=== PATIENT | male | born 1940 | race Caucasian/White ===

== ENCOUNTER → 2018-06-12 09:33 | Outpatient (CLI) | payer MEDICARE, BC, SELFPAY ==
[2018-06-12 10:33] LABS: Add Manual Diff / Slide Review NO; Basophils Percent Auto 0.9 % (0-2); Eosinophils Percent Auto 4.8 % (2-4); Hematocrit 45.4 % (41-53); Hemoglobin 15.5 g/dL (13.5-17.5); Lymphocytes Percent Auto 17.5 % (25-40); Mean Corpuscular HGB Conc 34.1 % (30-36); Mean Corpuscular Hemoglobin 30.8 PG (26-34); Mean Corpuscular Volume 90.1 fL (80-100); Monocytes Percent Auto 9.4 % (3-14); Neutrophils Absolute Auto 3900 /uL (3000-5900); Neutrophils Percent Auto 67.4 % (50-75); Platelet Count 199 X10^3/uL (150-400); Red Blood Cell Count 5.04 X10^6/uL (4.5-5.9); Red Cell Distribution Width 13.6 % (11.6-14.8); White Blood Cell Count 5.8 X10^3/uL (4.5-11.0)
[2018-06-12 11:06] LABS: Alanine Aminotransferase 31 IU/L (21-72); Albumin 4.2 g/dL (3.5-5.0); Albumin Globulin Ratio 1.8 (1.0-2.8); Alkaline Phosphatase 67 U/L (38-126); Aspartate Aminotransferase 25 IU/L (17-59); BUN Creatinine Ratio 20.8 (6-22); Blood Urea Nitrogen 27 mg/dL (9-20); Calcium 9.1 mg/dL (8.4-10.2); Carbon Dioxide 29 mmol/L (22-32); Chloride 105 mmol/L (98-107); Cholesterol 239 mg/dL (140-199); Estimated Glomerular Filt Rate 53.7 mL/min (>60); Globulin 2.4 g/dL (1.7-4.1); Glucose 95 mg/dL (80-110); HDL Cholesterol 36 mg/dL (40-60); HEMOLYSIS < 15 (0-50); LDL Cholesterol Calculated 180 mg/dL (<100); Potassium 4.7 mmol/L (3.4-5.1); Sodium 143 mmol/L (137-145); Total Protein 6.6 g/dL (6.3-8.2); Triglycerides 113 mg/dL (35-150)
[2018-06-12 11:24] LABS: Thyroid Stimulating Hormone 1.96 uIU/mL (0.47-4.68)
[2018-06-12 11:29] LABS: Prostate Specific Antigen Scrn < 0.064 ng/mL (0.1-4.0)
== END ==
PROVIDERS: Family Provider Family Medicine; PCP Family Medicine; Visit Provider Family Medicine
DX: I10 Essential (primary) hypertension (principal); E78.5 Hyperlipidemia, unspecified; Z12.5 Encounter for screening for malignant neoplasm of prostate
CPT/HCPCS: 36415; 80053; 80061; 84443; 85025; G0103

== ENCOUNTER → 2018-08-25 08:46 | Outpatient (CLI) | payer MEDICARE, BC, SELFPAY ==
--- NOTE | 2018-08-25 08:50 | DI.US.S_ITS ---
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 COMPARISON: None. FINDINGS: Stenosis calculations are based on SRU (Society of Radiologists in Ultras[employer]) criteria. The flow velocities and the arterial waveforms are normal within both carotid arterial systems. Atherosclerotic plaque is seen on both sides. The estimated degree of internal carotid artery stenosis is less than 50%. Antegrade flow is confirmed within both vertebral arteries. IMPRESSION: No hemodynamically significant stenosis is seen. Atherosclerotic plaque is noted bilaterally. Dictated by: Min Falk M.D. on 08/25/2018 at 9:12 Approved by: Min Falk M.D. on 08/25/2018 at 9:12
== END ==
PROVIDERS: Family Provider Family Medicine; PCP Family Medicine; Visit Provider Family Medicine
DX: I65.23 Occlusion and stenosis of bilateral carotid arteries (principal); I25.10 Atherosclerotic heart disease of native coronary artery without angina pectoris
CPT/HCPCS: 93880

== ENCOUNTER → 2018-09-24 12:55 | Outpatient (CLI) | payer MEDICARE, BC, SELFPAY ==
[2018-09-24 13:56] LABS: Blood Urea Nitrogen 22 mg/dL (9-20); Calcium 9.5 mg/dL (8.4-10.2); Carbon Dioxide 28 mmol/L (22-32); Chloride 103 mmol/L (98-107); Estimated Glomerular Filt Rate > 60.0 mL/min (>60); Glucose 82 mg/dL (80-110); HEMOLYSIS < 15 (0-50); Potassium 4.6 mmol/L (3.4-5.1); Sodium 142 mmol/L (137-145)
== END ==
PROVIDERS: PCP Family Medicine; Visit Provider Family Medicine
DX: I10 Essential (primary) hypertension (principal)
CPT/HCPCS: 36415; 80048

== ENCOUNTER → 2019-08-04 10:32 | Outpatient (CLI) | payer MEDICARE, BC, SELFPAY ==
[2019-08-04 12:22] LABS: Add Manual Diff / Slide Review NO; Basophils Absolute Auto 100 /uL (0-100); Basophils Percent Auto 0.9 % (0-2); Eosinophils Absolute Auto 200 /uL (0-450); Eosinophils Percent Auto 3.7 % (2-4); Hematocrit 46.1 % (41-53); Hemoglobin 15.9 g/dL (13.5-17.5); Lymphocytes Absolute Auto 1000 /uL (1100-4500); Lymphocytes Percent Auto 14.4 % (25-40); Mean Corpuscular HGB Conc 34.6 % (30-36); Mean Corpuscular Hemoglobin 30.8 PG (26-34); Mean Corpuscular Volume 89.2 fL (80-100); Monocytes Absolute Auto 600 /uL (0-900); Monocytes Percent Auto 8.3 % (3-14); Neutrophils Absolute Auto 4900 /uL (1500-7000); Neutrophils Percent Auto 72.7 % (50-75); Platelet Count 218 X10^3/uL (150-400); Red Blood Cell Count 5.16 X10^6/uL (4.5-5.9); Red Cell Distribution Width 13.5 % (11.6-14.8); White Blood Cell Count 6.8 X10^3/uL (4.5-11.0)
[2019-08-04 12:35] LABS: Alanine Aminotransferase 29 IU/L (21-72); Albumin 4.4 g/dL (3.5-5.0); Albumin Globulin Ratio 1.7 (1.0-2.8); Alkaline Phosphatase 74 U/L (38-126); Aspartate Aminotransferase 26 IU/L (17-59); BUN Creatinine Ratio 16.4 (6-22); Bilirubin Total 1.1 mg/dL (0.2-1.3); Blood Urea Nitrogen 18 mg/dL (9-20); Calcium 9.6 mg/dL (8.4-10.2); Carbon Dioxide 29 mmol/L (22-32); Chloride 104 mmol/L (98-107); Estimated Glomerular Filt Rate > 60.0 mL/min (>60); Globulin 2.6 g/dL (1.7-4.1); Glucose 85 mg/dL (80-110); HEMOLYSIS < 15 (0-50); Potassium 4.1 mmol/L (3.4-5.1); Sodium 142 mmol/L (137-145)
== END ==
PROVIDERS: PCP Family Medicine; Visit Provider Family Medicine
DX: R19.7 Diarrhea, unspecified (principal)
CPT/HCPCS: 36415; 80053; 85025

== ENCOUNTER → 2020-08-29 10:35 | Outpatient (CLI) | payer MEDICARE, SELFPAY ==
[2020-08-29 12:20] LABS: Add Manual Diff / Slide Review NO; Basophils Absolute Auto 100 /uL (0-100); Basophils Percent Auto 1.2 % (0-2); Eosinophils Absolute Auto 300 /uL (0-450); Eosinophils Percent Auto 4.8 % (2-4); Hemoglobin 16.1 g/dL (13.5-17.5); Lymphocytes Absolute Auto 1200 /uL (1100-4500); Lymphocytes Percent Auto 18.2 % (25-40); Mean Corpuscular HGB Conc 34.2 % (30-36); Mean Corpuscular Hemoglobin 30.9 PG (26-34); Mean Corpuscular Volume 90.3 fL (80-100); Monocytes Absolute Auto 600 /uL (0-900); Monocytes Percent Auto 8.7 % (3-14); Neutrophils Absolute Auto 4300 /uL (1500-7000); Neutrophils Percent Auto 67.1 % (50-75); Platelet Count 197 X10^3/uL (150-400); Red Cell Distribution Width 13.6 % (11.6-14.8); White Blood Cell Count 6.5 X10^3/uL (4.5-11.0)
[2020-08-29 12:55] LABS: Alanine Aminotransferase 23 IU/L (<50); Albumin 4.2 g/dL (3.5-5.0); Albumin Globulin Ratio 1.6 (1.0-2.8); Alkaline Phosphatase 78 U/L (38-126); Aspartate Aminotransferase 27 IU/L (17-59); BUN Creatinine Ratio 15.5 (6-22); Blood Urea Nitrogen 15 mg/dL (9-20); Calcium 9.5 mg/dL (8.4-10.2); Carbon Dioxide 30 mmol/L (22-32); Chloride 104 mmol/L (98-107); Cholesterol 254 mg/dL (140-199); Estimated Glomerular Filt Rate > 60.0 mL/min (>60); Globulin 2.6 g/dL (1.7-4.1); Glucose 96 mg/dL (80-110); HDL Cholesterol 36 mg/dL (40-60); HEMOLYSIS < 15 (0-50); LDL Cholesterol Calculated 180 mg/dL (<100); Sodium 139 mmol/L (137-145); Total Protein 6.8 g/dL (6.3-8.2); Triglycerides 189 mg/dL (35-150)
[2020-08-29 13:28] LABS: Prostate Specific Antigen Scrn < 0.064 ng/mL (0.1-4.0)
== END ==
PROVIDERS: PCP Family Medicine; Referring Provider Family Medicine; Visit Provider Family Medicine
DX: E78.5 Hyperlipidemia, unspecified (principal); R97.20 Elevated prostate specific antigen [PSA]; Z13.6 Encounter for screening for cardiovascular disorders; Z12.5 Encounter for screening for malignant neoplasm of prostate
CPT/HCPCS: 36415; 80053; 80061; 85025; G0103

== ENCOUNTER → 2021-01-06 10:04 | Outpatient (CLI) | payer MEDICARE, SELFPAY ==
[2021-01-06 11:02] LABS: Cholesterol 214 mg/dL (140-199); HDL Cholesterol 38 mg/dL (40-60); LDL Cholesterol Calculated 153 mg/dL (<100); Triglycerides 116 mg/dL (35-150)
[2021-01-06 11:32] LABS: TSH w/ Reflex to FT4 1.99 uIU/mL (0.47-4.68)
== END ==
PROVIDERS: PCP Student in an Organized Health Care Education/Training Program; Referring Provider Student in an Organized Health Care Education/Training Program; Visit Provider Student in an Organized Health Care Education/Training Program
DX: E78.5 Hyperlipidemia, unspecified (principal); R68.89 Other general symptoms and signs
CPT/HCPCS: 36415; 80061; 84443

== ENCOUNTER → 2022-04-27 11:13 | Outpatient (CLI) | payer MEDICARE, SELFPAY ==
[2022-04-27 13:36] LABS: BUN Creatinine Ratio 20.3 (6-22); Blood Urea Nitrogen 24 mg/dL (9-20); Calcium 9.4 mg/dL (8.4-10.2); Carbon Dioxide 29 mmol/L (22-32); Chloride 105 mmol/L (98-107); Estimated Glomerular Filt Rate > 60 mL/min (>60); Glucose 111 mg/dL (80-110); HEMOLYSIS < 15 (0-50); Potassium 4.9 mmol/L (3.4-5.1); Sodium 140 mmol/L (137-145)
[2022-04-27 13:56] LABS: Creatinine Urine Random 122.4 mg/dL
[2022-04-27 14:00] LABS: Microalbumi Creatinin Ratio Ur 19.6 ug/mg CR (<30); Microalbumin Urine Random 2.4 mg/dL (0-1.6)
[2022-04-27 14:07] LABS: Prostate Specific Antigen < 0.064 ng/mL (0.10-4.00)
== END ==
PROVIDERS: PCP Student in an Organized Health Care Education/Training Program; Referring Provider Student in an Organized Health Care Education/Training Program; Visit Provider Student in an Organized Health Care Education/Training Program
DX: I10 Essential (primary) hypertension (principal); R97.20 Elevated prostate specific antigen [PSA]; Z90.79 Acquired absence of other genital organ(s)
CPT/HCPCS: 36415; 80048; 82043; 82570; 84153; 84443

== ENCOUNTER → 2023-05-14 08:05 | Outpatient (CLI) | payer MEDICARE, SELFPAY ==
[2023-05-14 09:43] LABS: Add Manual Diff / Slide Review NO; Basophils Absolute Auto 100 /uL (0-100); Basophils Percent Auto 0.9 % (0-2); Eosinophils Absolute Auto 300 /uL (0-450); Eosinophils Percent Auto 5.5 % (2-4); Hematocrit 41.2 % (41-53); Hemoglobin 13.9 g/dL (13.5-17.5); Lymphocytes Absolute Auto 1200 /uL (1100-4500); Lymphocytes Percent Auto 20.3 % (25-40); Mean Corpuscular HGB Conc 33.7 % (30-36); Mean Corpuscular Hemoglobin 30.3 PG (26-34); Mean Corpuscular Volume 89.7 fL (80-100); Monocytes Absolute Auto 600 /uL (0-900); Monocytes Percent Auto 9.6 % (3-14); Neutrophils Absolute Auto 3700 /uL (1500-7000); Neutrophils Percent Auto 63.7 % (50-75); Platelet Count 199 X10^3/uL (150-400); Red Cell Distribution Width 13.6 % (11.6-14.8); White Blood Cell Count 5.8 X10^3/uL (4.5-11.0)
[2023-05-14 10:17] LABS: Alanine Aminotransferase 20 IU/L (<50); Albumin 3.9 g/dL (3.5-5.0); Albumin Globulin Ratio 1.6 (1.0-2.8); Alkaline Phosphatase 66 U/L (38-126); Aspartate Aminotransferase 26 IU/L (17-59); BUN Creatinine Ratio 15.8 (6-22); Bilirubin Total 0.6 mg/dL (0.2-1.3); Blood Urea Nitrogen 18 mg/dL (9-20); Calcium 8.8 mg/dL (8.4-10.2); Carbon Dioxide 28 mmol/L (22-32); Chloride 103 mmol/L (98-107); Cholesterol 230 mg/dL (140-199); Estimated Glomerular Filt Rate > 60 mL/min (>60); Globulin 2.4 g/dL (1.7-4.1); Glucose 100 mg/dL (80-110); HDL Cholesterol 35 mg/dL (40-60); HEMOLYSIS < 15 (0-50); LDL Cholesterol Calculated 167 mg/dL (<100); Magnesium 2.1 mg/dL (1.6-2.3); Potassium 4.8 mmol/L (3.4-5.1); Sodium 137 mmol/L (137-145); Total Protein 6.3 g/dL (6.3-8.2); Triglycerides 139 mg/dL (35-150)
[2023-05-14 10:46] LABS: TSH w/ Reflex to FT4 2.84 uIU/mL (0.47-4.68)
[2023-05-16 09:09] LABS: PSA, Total < 0.1 ng/mL (0.0-4.0)
== END ==
PROVIDERS: PCP Pediatrics; Referring Provider Pediatrics; Visit Provider Pediatrics
DX: C61 Malignant neoplasm of prostate (principal); I10 Essential (primary) hypertension; E78.2 Mixed hyperlipidemia; M79.18 Myalgia, other site
CPT/HCPCS: 36415; 80053; 80061; 83735; 84153; 84154; 84443; 85025

== ENCOUNTER → 2024-07-07 09:22 | Outpatient (CLI) | payer MEDICARE, SELFPAY ==
[2024-07-07 10:28] LABS: Add Manual Diff / Slide Review NO; Basophils Absolute Auto 100 /uL (0-100); Basophils Percent Auto 1.3 % (0-2); Eosinophils Absolute Auto 400 /uL (0-450); Eosinophils Percent Auto 6.3 % (2-4); Hematocrit 42.2 % (41-53); Hemoglobin 14.3 g/dL (13.5-17.5); Lymphocytes Absolute Auto 1100 /uL (1100-4500); Lymphocytes Percent Auto 16.8 % (25-40); Mean Corpuscular HGB Conc 33.9 % (30-36); Mean Corpuscular Hemoglobin 30.2 PG (26-34); Monocytes Absolute Auto 600 /uL (0-900); Monocytes Percent Auto 9.8 % (3-14); Neutrophils Absolute Auto 4300 /uL (1500-7000); Neutrophils Percent Auto 65.8 % (50-75); Platelet Count 211 X10^3/uL (150-400); Red Blood Cell Count 4.75 X10^6/uL (4.5-5.9); Red Cell Distribution Width 13.6 % (11.6-14.8); White Blood Cell Count 6.5 X10^3/uL (4.5-11.0)
[2024-07-07 10:55] LABS: BUN Creatinine Ratio 21.1 (6-22); Blood Urea Nitrogen 26 mg/dL (9-20); Calcium 9.4 mg/dL (8.4-10.2); Carbon Dioxide 25 mmol/L (22-32); Chloride 105 mmol/L (98-107); Cholesterol 239 mg/dL (140-199); Estimated Glomerular Filt Rate 59 mL/min (>60); Glucose 101 mg/dL (80-110); HDL Cholesterol 39 mg/dL (40-60); HEMOLYSIS < 15 (0-50); LDL Cholesterol Calculated 170 mg/dL (<100); Magnesium 2.1 mg/dL (1.6-2.3); Sodium 136 mmol/L (137-145); Triglycerides 149 mg/dL (35-150)
[2024-07-07 11:05] LABS: Creatinine Urine Random 123.48 mg/dL
[2024-07-07 11:12] LABS: Microalbumin Urine Random 4.4 mg/dL (0-1.6)
[2024-07-08 04:09] LABS: Homocysteine 15.4 umol/L (0.0-21.3)
== END ==
PROVIDERS: PCP Family Medicine; Referring Provider Family Medicine; Visit Provider Family Medicine
DX: I10 Essential (primary) hypertension (principal); I73.9 Peripheral vascular disease, unspecified; E78.2 Mixed hyperlipidemia; R25.2 Cramp and spasm
CPT/HCPCS: 36415; 80048; 80061; 82043; 82570; 83090; 83735; 85025

== ENCOUNTER → 2024-07-29 12:45 | Outpatient (CLI) | payer MEDICARE, SELFPAY ==
--- NOTE | 2024-07-29 12:47 | DI.US.S_ITS ---
PROCEDURE: US CAROTID DOPPLER BI INDICATIONS: Hypertension, Elevated Lipids, Carotid Atherosclerosis TECHNIQUE: Color and pulse Doppler interrogation was performed of both carotid systems, with image documentation and velocity measurements. COMPARISON: [facility], , CAROTID DOPPLER BI, 08/25/2018, 9:15. FINDINGS: Stenosis calculations are based on SRU (Society of Radiologists in Ultrasound) criteria. The flow velocities and the arterial waveforms are normal within both carotid arterial systems. Atherosclerotic plaque is seen on both sides. The estimated degree of internal carotid artery stenosis is less than 50%. Antegrade flow is confirmed within both vertebral arteries. IMPRESSION: No hemodynamically significant stenosis is seen. Atherosclerotic plaque is noted bilaterally. No significant change from the prior. Dictated by: Min Falk M.D. on 07/29/2024 at 16:37 Approved by: Min Falk M.D. on 07/29/2024 at 16:37
--- NOTE | 2024-07-29 12:47 | DI.US.S_ITS ---
PROCEDURE: US ARTERIAL DUPLEX LE BI INDICATIONS: Bilateral claidication TECHNIQUE: Color and pulse Doppler interrogation was performed of both lower extremity arterial systems, with image documentation. COMPARISON: None. FINDINGS: Right lower extremity: Common femoral artery: 126 cm/sec, with a triphasic flow. Deep femoral artery: 112 cm/sec, with triphasic flow. Proximal superficial femoral artery: 93 cm/sec, with biphasic flow. Mid superficial femoral artery: 76 cm/sec, with biphasic flow. Distal superficial femoral artery: 53 cm/sec, with biphasic flow. Popliteal artery: 72 cm/sec, with biphasic flow. Posterior tibial artery: 41 cm/sec, with biphasic flow. Anterior tibial artery/dorsalis pedis: 34 cm/sec, with biphasic flow. [place]as-scale imaging description: Multifocal calcified plaque throughout right lower extremity arterial system. Left lower extremity: Common femoral artery: 150 cm/sec, with triphasic flow. Deep femoral artery: 178 cm/sec, with triphasic flow. Proximal superficial femoral artery: 83 cm/sec, with biphasic flow. Mid superficial femoral artery: 51 cm/sec, with biphasic flow. Distal superficial femoral artery: 71 cm/sec, with biphasic flow. Popliteal artery: 23 cm/sec, with biphasic flow. Posterior tibial artery: 25 cm/sec, with monophasic flow. Anterior tibial artery/dorsalis pedis: 10 cm/sec, with monophasic flow. [place]as-scale imaging description: Multifocal calcified plaque throughout the left lower extremity arterial system. A focal eccentric calcified plaque within the left popliteal artery results in 50-99% stenosis. IMPRESSION: 1. Focal eccentric calcified plaque within the left popliteal artery resulting in 50-99% stenosis. 2. Dampened waveforms throughout the left anterior and posterior tibial arteries likely secondary to left popliteal artery stenosis and diffuse tibial disease. 3. No significant stenosis involving the right lower extremity arterial system. Dictated by: Wing Virgen M.D. on 07/29/2024 at 16:38 Approved by: Wing Virgen M.D. on 07/29/2024 at 16:43
== END ==
PROVIDERS: PCP Family Medicine; Referring Provider Family Medicine; Visit Provider Family Medicine
DX: I70.202 Unspecified atherosclerosis of native arteries of extremities, left leg (principal); I65.23 Occlusion and stenosis of bilateral carotid arteries; R25.2 Cramp and spasm; E78.2 Mixed hyperlipidemia; I10 Essential (primary) hypertension
CPT/HCPCS: 93880; 93925

== ENCOUNTER → 2024-12-28 16:19 | Outpatient (CLI) | payer MEDICARE, SELFPAY ==
[2025-01-02 14:11] LABS: ANA Screen, IFA Negative (.)
== END ==
PROVIDERS: PCP Family Medicine; Referring Provider Dermatology; Visit Provider Dermatology
DX: L43.2 Lichenoid drug reaction (principal)
CPT/HCPCS: 36415; 86038

== ENCOUNTER → 2025-01-12 13:54 | Outpatient (CLI) | payer MEDICARE, SELFPAY ==
[2025-01-12 15:50] LABS: Prostate Specific Antigen < 0.064 ng/mL (0.10-4.00)
== END ==
PROVIDERS: PCP Family Medicine; Referring Provider Family Medicine; Visit Provider Family Medicine
DX: R97.20 Elevated prostate specific antigen [PSA] (principal); C61 Malignant neoplasm of prostate
CPT/HCPCS: 36415; 84153

== ENCOUNTER → 2025-02-04 16:09 | Outpatient (CLI) | payer MEDICARE, SELFPAY ==
--- NOTE | 2025-02-04 16:11 | DI.RAD.S_ITS ---
PROCEDURE: XR HAND LT MIN 3V INDICATIONS: Bilateral hand joint pain TECHNIQUE: 3 views of the hand(s) acquired. COMPARISON: None. FINDINGS: Bones: Interphalangeal joint space narrowing with osteophytosis. Hook-like osteophytes of the 2nd and 3rd metacarpal heads. 1st CMC joint space narrowing with associated osteophytosis and sclerosis. Fixed flexion of the 5th PIP joint. Soft tissues: No suspicious soft tissue calcifications. 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 Hook-like osteophytes of the 2nd and 3rd metacarpal heads, which is commonly seen in hemochromatosis, less likely CPPD, osteoarthritis or rheumatoid arthritis. Dictated by: Geovany Diaz M.D. on 02/05/2025 at 11:52 Approved by: Geovany Diaz M.D. on 02/05/2025 at 11:54
--- NOTE | 2025-02-04 16:11 | DI.RAD.S_ITS ---
PROCEDURE: XR HAND RT MIN 3V INDICATIONS: Bilateral hand joint pain TECHNIQUE: 3 views of the hand(s) acquired. COMPARISON: None. FINDINGS: Bones: Interphalangeal joint space narrowing with osteophytosis. 1st CMC joint space narrowing with associated osteophytosis and sclerosis. Hooked 2nd and 3rd metacarpal heads. Soft tissues: No suspicious soft tissue calcifications. 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 Hooked 2nd and 3rd metacarpal heads. Dictated by: Geovany Diaz M.D. on 02/05/2025 at 14:24 Approved by: Geovany Diaz M.D. on 02/05/2025 at 14:24
[2025-02-04 16:52] LABS: Add Manual Diff / Slide Review NO; Basophils Absolute Auto 100 /uL (0-100); Basophils Percent Auto 0.8 % (0-2); Eosinophils Absolute Auto 300 /uL (0-450); Eosinophils Percent Auto 3.6 % (2-4); Hematocrit 40.5 % (41-53); Hemoglobin 13.9 g/dL (13.5-17.5); Lymphocytes Absolute Auto 1100 /uL (1100-4500); Lymphocytes Percent Auto 15.6 % (25-40); Mean Corpuscular HGB Conc 34.4 % (30-36); Mean Corpuscular Hemoglobin 30.2 PG (26-34); Mean Corpuscular Volume 87.9 fL (80-100); Monocytes Absolute Auto 700 /uL (0-900); Monocytes Percent Auto 9.4 % (3-14); Neutrophils Absolute Auto 4900 /uL (1500-7000); Neutrophils Percent Auto 70.6 % (50-75); Platelet Count 224 X10^3/uL (150-400); Red Blood Cell Count 4.61 X10^6/uL (4.5-5.9); Red Cell Distribution Width 13.8 % (11.6-14.8)
[2025-02-04 17:03] LABS: Appearance Urine UA CLEAR; Bilirubin Urine UA NEGATIVE (NEGATIVE); Color Urine UA YELLOW; Glucose Urine UA NEGATIVE (Negative); Ketones Urine UA NEGATIVE (NEGATIVE); Leukocyte Esterase Urine UA 1+ (NEGATIVE); Nitrite Urine UA NEGATIVE (Negative); Occult Blood Urine UA NEGATIVE (Negative); Protein Urine UA NEGATIVE (Negative); Urobilinogen Urine UA 0.2 E.U./dL (0.2); pH Urine UA 5.5 (4.5-8.0)
[2025-02-04 17:14] LABS: Amorphous Sediment Urine 1+; Bacteria Urine Moderate (10-30); Culture Indicated Urine Specimen Cultured; Other Crystals Urine Other Crystals:; RBC Urine None Seen (0-5/HPF); Squamous Epithelial Cell Urine 1-5 /HPF (0-5/HPF); Urine Volume 10mL (spun); WBC Urine 5-10/HPF (0-5/HPF)
[2025-02-04 17:33] LABS: Blood Urea Nitrogen 34 mg/dL (9-20); C-Reactive Protein Quant < 0.5 mg/dL (<1.0); Calcium 9.3 mg/dL (8.4-10.2); Carbon Dioxide 21 mmol/L (22-32); Chloride 107 mmol/L (98-107); Estimated Glomerular Filt Rate 57 mL/min (>60); Glucose 87 mg/dL (70-99); HEMOLYSIS < 15 (0-50); Magnesium 1.9 mg/dL (1.6-2.3); Sodium 137 mmol/L (137-145)
[2025-02-04 17:36] LABS: Rheumatoid Factor < 8.6 IU/mL (<12.0)
[2025-02-04 17:39] LABS: Erythrocyte Sedimentation Rate 6 MM/HR (0-15)
[2025-02-08 14:09] LABS: CCP Antibodies IgG/IgA 8 units (0-19)
[2025-02-11 10:12] LABS: ANA Screen, IFA Negative (.)
== END ==
PROVIDERS: PCP Family Medicine; Referring Provider Family Medicine; Visit Provider Family Medicine
DX: M18.0 Bilateral primary osteoarthritis of first carpometacarpal joints (principal); M19.042 Primary osteoarthritis, left hand; M19.041 Primary osteoarthritis, right hand; I73.9 Peripheral vascular disease, unspecified; M25.541 Pain in joints of right hand; M25.542 Pain in joints of left hand; R32 Unspecified urinary incontinence
CPT/HCPCS: 36415; 73130; 80048; 81001; 83735; 85025; 85651; 86038; 86140; 86200; 86430; 87077; 87086; 87186